=== PATIENT | female | born 1990 | race Two or more races ===

== ENCOUNTER 2023-08-04 12:27 | Inpatient (IN) | payer MEDICAID ==
[~2023-08-04] VITALS: Ht 160 cm; Wt 49.0 kg
[2023-08-04 14:03] LABS: Mean Corpuscular Hgb Conc. 33.6 g/dL (32.0-36.0)
[2023-08-04 14:04] LABS: Hematocrit 20.7 % (36.0-46.0); Mean Corpuscular Hemoglobin 28.4 pg (28.0-32.0); Mean Corpuscular Volume 84.5 fL (80.0-100.0); Red Blood Cells 2.45 10^6/uL (4.0-5.20); Red Cell Distribution Width 16.8 % (11.8-14.3); White Blood Cell 13.4 10^3/uL (4.4-10.8)
[2023-08-04 14:18] LABS: Alanine Aminotransferase 16 U/L (7-40); Albumin 4.5 g/dL (3.2-4.8); Alkaline Phosphatase 59 U/L (46-116); Anion Gap 13 (5-15); Aspartate Aminotransferase 111 U/L (13-40); BUN/Creatinine Ratio 19.2 (10.0-20.0); Bilirubin, Total 0.4 mg/dL (0.2-1.0); Blood Urea Nitrogen 14 mg/dL (9-23); Calcium 9.1 mg/dL (8.5-10.1); Carbon Dioxide 16 mmol/L (20-30); Chloride 110 mmol/L (98-107); Glucose 132 mg/dL (74-106); Potassium 3.5 mmol/L (3.5-5.1); Sodium 139 mmol/L (136-145); Total Protein 6.8 g/dL (5.7-8.2)
[2023-08-04 14:19] LABS: Hemoglobin 6.9 g/dL (12.2-16.2)
[2023-08-04] MEDS: ASPirin 325 MG TAB PO ONE (14:39)
[2023-08-04 14:54] LABS: Basophils % (manual) 0 (0.0-2.0); Blast Cells 0; Eosinophils % (manual) 0 (0-7); Metamyelocytes % 0; Myelocytes % 0; Reactive Lymphocytes 0
[2023-08-04 14:59] LABS: Band Neutrophils % (manual) 2; Lymphocytes % (manual) 4 (10.0-50.0); Monocytes % (manual) 88 (0-12); Promyelocytes % 2
[2023-08-04] MEDS: SODIUM CHLORIDE 0.9% 1,000 ML IV ONE (15:00)
[2023-08-04 15:02] LABS: Platelet Estimate Decreased
[2023-08-04 15:42] VITALS: PULSE 107; RESP 25; O2SAT 99
[2023-08-04] MEDS ORDERED: NITROGLYCERIN 0.4 MG SL TAB SL PRN (15:45)
[2023-08-04 16:16] LABS: % Iron Saturation 43.7 % (15-50)
[2023-08-04 16:23] LABS: INR 1.08 (0.9-1.15); Prothrombin Time 11.3 sec (9.3-11.8)
[2023-08-04 16:26] LABS: Ferritin 579.3 ng/mL (10-291); Free T3 3.04 pg/mL (2.3-4.2)
[2023-08-04 16:27] LABS: Free T4 (Free Thyroxine) 1.19 ng/dL (0.89-1.76)
[2023-08-04] MEDS: ONDANSETRON HCL 4 MG/2 ML VIAL IV PRN (16:30)
[2023-08-04] MEDS: MORPHINE SULFATE INJ 2 MG/ml SYRG IV PRN (16:32)
[2023-08-04] MEDS: IOHEXOL 350 MG/ML 100ML IJ ONE (16:55)
[2023-08-04] MEDS: SODIUM CHLORIDE 0.9% 1,000 ML IV SCH (17:00)
[2023-08-04 17:08] LABS: Hematocrit 18.8 % (36.0-46.0)
[2023-08-04 17:20] LABS: Hemoglobin 6.2 g/dL (12.2-16.2)
[2023-08-04 17:23] LABS: Urine Bacteria FEW /hpf (None Seen); Urine Blood Negative /uL (Negative); Urine Clarity Turbid (Clear); Urine Color Light-Yellow (Yellow); Urine Mucus FEW (None Seen); Urine Protein, UAD Negative (Negative); Urine Urobilinogen Normal (Negative); Urine WBC 1 /hpf (0 - 5)
[2023-08-04 18:15] VITALS: BP 113/59; PULSE 86; RESP 19; TEMP 100.4
[2023-08-04 18:45] VITALS: BP 124/60; PULSE 86; RESP 19; TEMP 100.6
[2023-08-04] MEDS: MORPHINE SULFATE INJ 2 MG/ml SYRG IV ONE (19:22)
[2023-08-04] MEDS: ACETAMINOPHEN 325 MG TAB PO PRN (19:23)
[2023-08-04 19:30] VITALS: PULSE 88; RESP 26; O2SAT 100
[2023-08-04 21:26] VITALS: BP 102/54; PULSE 85; RESP 15; TEMP 99.4
[2023-08-05] MEDS: MORPHINE SULFATE 4 MG/ML SYR/VIAL IV PRN (00:11)
[2023-08-05 01:11] LABS: Mean Corpuscular Hemoglobin 29.4 pg (28.0-32.0)
[2023-08-05 01:13] LABS: Hematocrit 24.4 % (36.0-46.0); Mean Corpuscular Volume 89.2 fL (80.0-100.0); Red Blood Cells 2.73 10^6/uL (4.0-5.20); Red Cell Distribution Width 16.4 % (11.8-14.3); White Blood Cell 13.5 10^3/uL (4.4-10.8)
[2023-08-05 01:32] LABS: Basophils % (manual) 0 (0.0-2.0); Blast Cells 0; Eosinophils % (manual) 0 (0-7); Metamyelocytes % 0; Myelocytes % 0; Promyelocytes % 0; Reactive Lymphocytes 0
[2023-08-05 01:34] LABS: Band Neutrophils % (manual) 3; Lymphocytes % (manual) 85 (10.0-50.0); Monocytes % (manual) 6 (0-12); Platelet Estimate Markedly Decreased
[2023-08-05] MEDS: ACETAMINOPHEN 500 MG TAB PO ONE (03:09)
[2023-08-05] MEDS: IBUPROFEN 600 MG TAB PO ONE (03:15)
[2023-08-05] MEDS: SODIUM CHLORIDE 0.9% 1,000 ML IV ONE (05:15)
[2023-08-05 05:19] LABS: Hematocrit 21.6 % (36.0-46.0); Hemoglobin 7.5 g/dL (12.2-16.2); Mean Corpuscular Hemoglobin 29.1 pg (28.0-32.0); Mean Corpuscular Hgb Conc. 34.5 g/dL (32.0-36.0); Mean Corpuscular Volume 84.4 fL (80.0-100.0); Red Blood Cells 2.56 10^6/uL (4.0-5.20); White Blood Cell 11.1 10^3/uL (4.4-10.8)
[2023-08-05 05:28] LABS: Basophils % (manual) 0 (0.0-2.0); Metamyelocytes % 0; Myelocytes % 0; Reactive Lymphocytes 0
[2023-08-05 05:39] LABS: Alkaline Phosphatase 51 U/L (46-116); Anion Gap 7 (5-15); BUN/Creatinine Ratio 15.8 (10.0-20.0); Blood Urea Nitrogen 9 mg/dL (9-23); Calcium 8.5 mg/dL (8.7-10.4); Carbon Dioxide 19 mmol/L (20-30); Chloride 110 mmol/L (98-107); Glucose 110 mg/dL (74-106); Potassium 3.7 mmol/L (3.5-5.1); Sodium 136 mmol/L (136-145)
[2023-08-05 05:41] LABS: Albumin 3.7 g/dL (3.2-4.8); Aspartate Aminotransferase 34 U/L (13-40); Bilirubin, Total 0.6 mg/dL (0.2-1.0); Total Protein 6.1 g/dL (5.7-8.2)
[2023-08-05 05:42] LABS: Alanine Aminotransferase 9 U/L (7-40)
[2023-08-05] MEDS: cefTRIAXone 1GM/50ML D5W 50 ML IV SCH (06:06)
[2023-08-05] MEDS: NOREPINEPHRINE 8 MG/250ML KIT 250 ML IV SCH (06:18)
[2023-08-05 07:45] VITALS: PULSE 77; RESP 20; O2SAT 99
[2023-08-05 09:02] LABS: Band Neutrophils % (manual) 2; Blast Cells 2; Eosinophils % (manual) 1 (0-7); Lymphocytes % (manual) 12 (10.0-50.0); Monocytes % (manual) 76 (0-12); Promyelocytes % 1
[2023-08-05 09:06] LABS: Platelet Estimate Decreased
[2023-08-05] MEDS: DOCUSATE SOD 100 MG CAP PO SCH (09:41)
[2023-08-05 19:30] VITALS: PULSE 89; RESP 18; O2SAT 98
[2023-08-05 21:01] LABS: COVID19 ANTIGEN SOFIA FIA NEGATIVE (NEGATIVE)
[2023-08-05 21:28] LABS: Hematocrit 21.4 % (36.0-46.0); Hemoglobin 7.2 g/dL (12.2-16.2); Mean Corpuscular Hemoglobin 28.9 pg (28.0-32.0); Mean Corpuscular Hgb Conc. 33.8 g/dL (32.0-36.0); Mean Corpuscular Volume 85.6 fL (80.0-100.0); Red Blood Cells 2.51 10^6/uL (4.0-5.20); Red Cell Distribution Width 16.4 % (11.8-14.3); White Blood Cell 9.4 10^3/uL (4.4-10.8)
[2023-08-05 21:32] LABS: Basophils % (manual) 0 (0.0-2.0); Eosinophils % (manual) 0 (0-7); Metamyelocytes % 0; Myelocytes % 0; Promyelocytes % 0
[2023-08-05 22:42] LABS: Band Neutrophils % (manual) 1; Blast Cells 10; Monocytes % (manual) 4 (0-12); Reactive Lymphocytes 10
[2023-08-05 22:44] LABS: Anisocytosis Slight; Lymphocytes % (manual) 69 (10.0-50.0)
[2023-08-05 23:08] LABS: Platelet Estimate Markedly Decreased
[2023-08-06] VITALS (15 sets, daily range): BP systolic 92–117; BP diastolic 46–65; PULSE 66–94; RESP 17–31; TEMP 98.8–100.2; O2SAT 97–99
[2023-08-06] MEDS: ACETAMINOPHEN 325 MG TAB PO PRN (04:11)
[2023-08-06 08:00] LABS: Hemoglobin 8.6 g/dL (12.2-16.2); Mean Corpuscular Hgb Conc. 33.6 g/dL (32.0-36.0); White Blood Cell 11.5 10^3/uL (4.4-10.8)
[2023-08-06 08:02] LABS: Hematocrit 25.7 % (36.0-46.0); Mean Corpuscular Hemoglobin 28.8 pg (28.0-32.0); Mean Corpuscular Volume 85.7 fL (80.0-100.0); Red Blood Cells 2.99 10^6/uL (4.0-5.20); Red Cell Distribution Width 16.3 % (11.8-14.3)
[2023-08-06 08:46] LABS: Basophils % (manual) 0 (0.0-2.0); Eosinophils % (manual) 0 (0-7); Metamyelocytes % 0; Promyelocytes % 0
[2023-08-06 09:41] LABS: Band Neutrophils % (manual) 6; Blast Cells 3; Lymphocytes % (manual) 68 (10.0-50.0); Monocytes % (manual) 3 (0-12); Myelocytes % 1; Reactive Lymphocytes 4
[2023-08-06 09:42] LABS: Platelet Estimate Decreased
[2023-08-06 14:50] LABS: Hematocrit 24.4 % (36.0-46.0); Hemoglobin 8.3 g/dL (12.2-16.2); Red Cell Distribution Width 15.7 % (11.8-14.3); White Blood Cell 9.5 10^3/uL (4.4-10.8)
[2023-08-06 14:53] LABS: Mean Corpuscular Hemoglobin 29.2 pg (28.0-32.0); Mean Corpuscular Volume 85.9 fL (80.0-100.0); Red Blood Cells 2.84 10^6/uL (4.0-5.20)
[2023-08-06 14:55] LABS: Basophils % (manual) 0 (0.0-2.0); Eosinophils % (manual) 0 (0-7); Metamyelocytes % 0; Myelocytes % 0; Promyelocytes % 0
[2023-08-06 15:57] LABS: INR 1.07 (0.9-1.15); Prothrombin Time 11.2 sec (9.3-11.8)
[2023-08-06 16:07] LABS: Band Neutrophils % (manual) 3; Blast Cells 8; Lymphocytes % (manual) 78 (10.0-50.0); Monocytes % (manual) 3 (0-12); Reactive Lymphocytes 3
[2023-08-06 16:09] LABS: Platelet Estimate Decreased
[2023-08-06 16:40] LABS: Wright Stain Ready for Review
[2023-08-06 19:35] LABS: Mean Corpuscular Hemoglobin 29.3 pg (28.0-32.0)
[2023-08-06 19:38] LABS: Hemoglobin 8.2 g/dL (12.2-16.2); Mean Corpuscular Volume 86.3 fL (80.0-100.0); Red Blood Cells 2.78 10^6/uL (4.0-5.20); Red Cell Distribution Width 16.4 % (11.8-14.3)
[2023-08-06 19:41] LABS: Basophils % (manual) 0 (0.0-2.0); Eosinophils % (manual) 0 (0-7); Myelocytes % 0; Promyelocytes % 0
[2023-08-06 20:53] LABS: Band Neutrophils % (manual) 2; Lymphocytes % (manual) 66 (10.0-50.0); Metamyelocytes % 2; Monocytes % (manual) 4 (0-12)
[2023-08-06 20:54] LABS: Blast Cells 5; Platelet Estimate Markedly Decreased; Reactive Lymphocytes 15
[2023-08-07] VITALS (8 sets, daily range): BP systolic 102–116; BP diastolic 59–78; PULSE 58–110; RESP 16–18; TEMP 97.1–99; O2SAT 96–100
[2023-08-07 09:38] LABS: Hepatitis B Surface Antigen Negative (Negative)
[2023-08-07 09:58] LABS: Hepatitis A Ab IgM Negative
[2023-08-07 09:59] LABS: Hepatitis B Core IgM Negative
[2023-08-07 10:00] LABS: Hepatitis C Antibody Negative (Negative)
[2023-08-07] MEDS ORDERED: LIDOCAINE 2%HCL (LOCAL ANESTH.) INJ 10ml MDV ONE (12:53)
[2023-08-07] MEDS: fentaNYL CITRATE 100 MCG/2 ML VL IV ONE (13:45)
[2023-08-07] MEDS: MIDAZOLAM HCL 2MG/2ML 2ml VIAL (1mg/ml) IV ONE (13:45)
[2023-08-07 18:55] LABS: Basophils % (manual) 0 (0.0-2.0); Eosinophils % (manual) 0 (0-7); Metamyelocytes % 0; Myelocytes % 0; Promyelocytes % 0
[2023-08-07 18:57] LABS: Eosinophils # (auto) 0 10 ^3/uL (0-0.8); Eosinophils % (auto) 0.1 % (0.0-7.0); Hemoglobin 8.5 g/dL (12.2-16.2); Nucleated Red Blood Cells % 0.3 %; Red Blood Cells 2.95 10^6/uL (4.0-5.20); White Blood Cell 9.8 10^3/uL (4.4-10.8)
[2023-08-07 18:59] LABS: Basophils # (auto) 0.1 10 ^3/uL (0-0.2); Basophils % (auto) 1.5 % (0.0-2.0); Hematocrit 25.4 % (36.0-46.0); Lymphocytes # (auto) 8.3 10 ^3/uL (0.4-5.4); Mean Corpuscular Hemoglobin 28.9 pg (28.0-32.0); Mean Corpuscular Hgb Conc. 33.6 g/dL (32.0-36.0); Monocytes # (auto) 0.6 10 ^3/uL (0-1.3); Monocytes % (auto) 6.2 % (0.0-12.0); Neutrophils # (auto) 0.7 10 ^3/uL (1.6-8.6); Neutrophils % (auto) 6.8 % (37.0-80.0); Red Cell Distribution Width 16.1 % (11.8-14.3)
[2023-08-07 19:05] LABS: Lymphocytes % (auto) 85.4 % (10.0-50.0)
[2023-08-07 20:12] LABS: Anisocytosis Moderate; Platelet Estimate Decreased
[2023-08-07 20:16] LABS: Band Neutrophils % (manual) 2; Lymphocytes % (manual) 51 (10.0-50.0); Monocytes % (manual) 3 (0-12); Nucleated Red Blood Cells % 0.3 %
[2023-08-07 20:17] LABS: Anisocytosis Moderate; Blast Cells 26; Platelet Estimate Markedly Decreased; Reactive Lymphocytes 12
[2023-08-08] VITALS (7 sets, daily range): BP systolic 92–118; BP diastolic 48–71; PULSE 64–83; RESP 17–20; TEMP 97.3–100.8; O2SAT 96–99
[2023-08-08 11:07] LABS: EBV Ab VCA IgG Antibody >600.0 U/mL (0.0-17.9); EBV Ab VCA IgM Antibody <36.0 U/mL (0.0-35.9)
[2023-08-08 12:06] LABS: EBV Early Antigen IgG Antibody 18.9 U/mL (0.0-17.9)
[2023-08-08 18:49] LABS: Hemoglobin 7.7 g/dL (12.2-16.2); Mean Corpuscular Volume 86.7 fL (80.0-100.0); Red Cell Distribution Width 16.1 % (11.8-14.3); White Blood Cell 9.6 10^3/uL (4.4-10.8)
[2023-08-08 18:50] LABS: Hematocrit 22.5 % (36.0-46.0); Mean Corpuscular Hemoglobin 29.8 pg (28.0-32.0); Mean Corpuscular Hgb Conc. 34.3 g/dL (32.0-36.0)
[2023-08-08 19:12] LABS: Basophils % (manual) 0 (0.0-2.0); Eosinophils % (manual) 0 (0-7); Metamyelocytes % 0; Myelocytes % 0; Promyelocytes % 0
[2023-08-08 20:37] LABS: Band Neutrophils % (manual) 3; Blast Cells 7; Lymphocytes % (manual) 73 (10.0-50.0); Monocytes % (manual) 3 (0-12); Platelet Estimate Decreased; Reactive Lymphocytes 11
[2023-08-08] MEDS: traZODone HCL 50 MG TAB PO SCH (22:16)
[2023-08-08] MEDS: OXYCODONE W/ ACETAMINOPHEN 5/325MG TABLET PO PRN (22:18)
[2023-08-09 01:00] VITALS: BP_SYST 109; BP_SYST 99; BP_DIAS 52; BP_DIAS 66; PULSE 74; RESP 17; TEMP 99.3; O2SAT 95
[2023-08-09 05:00] VITALS: BP 103/63; PULSE 76; RESP 16; TEMP 99.3; O2SAT 98
[2023-08-09 08:10] VITALS: PULSE 101
[2023-08-09 09:00] VITALS: BP 105/63; PULSE 85; RESP 17; TEMP 98.3; O2SAT 96
[2023-08-09 13:27] VITALS: BP 118/82; PULSE 86; RESP 17; TEMP 98.7; O2SAT 98
[2023-08-09 16:30] VITALS: BP 115/69; PULSE 69; RESP 18; TEMP 98.4; O2SAT 97
== END 2023-08-09 21:00 | disposition short-term general hospital (02) | DRG 690 ==
LOC: ER 12:27 → EDBD 12:27 → TELE 15:39 → TELE-WESTW 08-06 17:53
PROVIDERS: ADMIT Nurse Practitioner Family; ATTEND Internal Medicine
PROC: 30233N1 Transfusion of Nonautologous Red Blood Cells into Peripheral Vein, Percutaneous Approach (ICD-10-PCS; principal; 2023-08-04)
PROC: 30233R1 Transfusion of Nonautologous Platelets into Peripheral Vein, Percutaneous Approach (ICD-10-PCS; 2023-08-06)
PROC: 0Q923ZX Drainage of Right Pelvic Bone, Percutaneous Approach, Diagnostic (ICD-10-PCS; 2023-08-07)
DX: C91.00 Acute lymphoblastic leukemia not having achieved remission (principal); D62 Acute posthemorrhagic anemia; D69.6 Thrombocytopenia, unspecified; F12.10 Cannabis abuse, uncomplicated; Z20.822 Contact with and (suspected) exposure to COVID-19; F41.9 Anxiety disorder, unspecified; R04.0 Epistaxis; E05.90 Thyrotoxicosis, unspecified without thyrotoxic crisis or storm; Z98.891 History of uterine scar from previous surgery
CPT/HCPCS: 10005; 36415; 71045; 71260; 72192; 74177; 76856; 77012; 80053; 80074; 81001; 81025; 82728; 82962; 83010; 83540; 83550; 83605; 83615; 83690; 83735; 84439; 84443; 84481; 84484; 84550; 84702; 85007; 85014; 85018; 85025; 85027; 85045; 85060; 85362; 85379; 85384; 85610; 85730; 86664; 86703; 86850; 86900; 86901; 86920; 87040; 87426; 93005; 93306; 96360; G0378; J2001; J2250; J2405